=== PATIENT | female | born 1960 | race Caucasian/White ===

== ENCOUNTER 2020-12-07 08:44 | Day surgery (SDC) | payer BC ==
[~2020-12-07] VITALS: Ht 165.1 cm; Wt 98.7 kg
[2020-12-07] VITALS (11 sets, daily range): BP systolic 99–141; BP diastolic 56–89; PULSE 67–85; TEMP 98.4–98.9
[2020-12-07] MEDS ORDERED: COZAAR 50MG50 MG/TAB PO (09:45)
[2020-12-07] MEDS ORDERED: ALDACTONE50 MG PO (09:46)
[2020-12-07] MEDS ORDERED: KORLYM300 MG PO (09:47)
[2020-12-07] MEDS ORDERED: TAMOXIFEN CITRA20 MG PO (09:49)
[2020-12-07] MEDS ORDERED: EFFEXOR 75M75 MG/TAB PO (09:49)
[2020-12-07] MEDS ORDERED: CITRACAL + D CA1 TAB (09:50)
[2020-12-07] MEDS ORDERED: VITAMIN E 400 U4001 PO (09:56)
[2020-12-07] MEDS ORDERED: TYLENOL 500MG500 MG PO (10:00)
--- NOTE | 2020-12-07 14:50 | NUR ---
Patient up from [place] by bed. Alert and oriented x 3. Spouse at bedside. Denies pain at this time. Lap sites x 4 with edges well approximated. High to DD with clear yellow urine present. Post op VSS and post op Fluids infusing per orders. Denies further needs at this time.
--- NOTE | 2020-12-07 19:17 | NUR ---
Patient doing well throughout the day. Post op VSS. Denies pain or further needs at this time. Reported off to branch examiner.
--- NOTE | 2020-12-07 22:47 | NUR ---
Patient alert and oriented. Patient reports pain in minimal to abdomen incision site. Abdomen area has x4 incisions and open to air. No s/s of infection noted. VS stable. Call light in reach. Will continue to monitor.
[2020-12-08 03:47] VITALS: BP 101/64; PULSE 85; TEMP 98.2
--- NOTE | 2020-12-08 06:19 | NUR ---
Patient has no c/o pain throughout the night. Patient tolerating PO food intake well. Ice water and ice chips provided this morning per patient request. Call light in reach.
[2020-12-08 07:29] VITALS: BP 110/59; PULSE 77; TEMP 98.1
--- NOTE | 2020-12-08 07:50 | NUR ---
Patient sitting up in bed. Alert and oriented x 2. Assessment complete. Lap sites x 4 with edges well approximated. Peripad in place with minimal bloody drainage. INT to RAC. High to DD with clear yellow urine present. Patient denies pain at this time. SBA to reciner. Denies further needs at this time.
--- NOTE | 2020-12-08 09:45 | NUR ---
Dr. Varela in to see patient. High catheter discontinued per orders. Patient tolerated well, pericare provided. Denies further needs at this time.
--- NOTE | 2020-12-08 10:30 | NUR ---
Patient up to restroom. voided 20 ml of urine, bladder scanned for 20 ml.
--- NOTE | 2020-12-08 11:33 | NUR ---
Patient up to void. Voided approximately 150 ml of clear yellow urine. Bladder scan for 4 ml. Denies additional needs at this time.
[2020-12-08 11:50] VITALS: BP 112/69; PULSE 82; TEMP 98.3
--- NOTE | 2020-12-08 13:52 | NUR ---
Plans to return to [facility]. Patient rpeorts that her Larry is her care support. Patient shares that she is not in any pain and her PCP is Dr. Betancourt and sees Dr. Pierson. Patient idnicated that other specialist are Dr. Venancio Mann and Dr. Abdirizak Henderson. Patient shares that she obtians her medications at the local [facility] or [facility] in [facility]. Patient denies having any care concerns . Patient ididciated that her son may pick her up and take her home. Educated on supports available to her via case managment. NF.
== END 2020-12-08 12:10 | disposition home or self-care (01) ==
LOC: SDCO 08:44 → SURG 15:41 → SDCO 12-08 12:10
DX: D25.1 Intramural leiomyoma of uterus (principal); N83.202 Unspecified ovarian cyst, left side; N88.8 Other specified noninflammatory disorders of cervix uteri; N80.0 Endometriosis of uterus; D36.9 Benign neoplasm, unspecified site; N30.00 Acute cystitis without hematuria; I10 Essential (primary) hypertension; E24.9 Cushing's syndrome, unspecified; E55.9 Vitamin D deficiency, unspecified; K59.00 Constipation, unspecified; E66.9 Obesity, unspecified; F41.9 Anxiety disorder, unspecified; Z79.899 Other long term (current) drug therapy; Z85.828 Personal history of other malignant neoplasm of skin; Z20.822 Contact with and (suspected) exposure to COVID-19; Z90.49 Acquired absence of other specified parts of digestive tract; Z90.89 Acquired absence of other organs; Z68.39 Body mass index [BMI] 39.0-39.9, adult; Z83.3 Family history of diabetes mellitus
CPT/HCPCS: OP; A4314; J0690; J1885; J2405; J2704; J2710; J3010; J7120

== ENCOUNTER 2021-07-23 05:42 | Emergency (ER) | payer BC ==
[~2021-07-23] VITALS: Ht 165.1 cm; Wt 98.6 kg
[~2021-07-23 05:42] MED LIST: ALDACTONE50 MG PO; CITRACAL + D CA1 TAB; COZAAR 50MG50 MG/TAB PO; EFFEXOR 75M75 MG/TAB PO; KORLYM300 MG PO; TAMOXIFEN CITRA20 MG PO; TYLENOL 500MG500 MG PO; VITAMIN E 400 U4001 PO
[2021-07-23 05:44] VITALS: TEMP 98.3
[2021-07-23 06:06] LABS: BASO # 0.1 K/mm3 (0.0-0.2); BASO % 0.6 % (0.0-2.0); EOS # 0.1 K/mm3 (0.0-0.7); GRAN # 6.8 K/mm3 (1.4-6.5); GRAN % 66.6 % (42.2-75.2); HEMATOCRIT 43.1 % (37.0-47.0); HEMOGLOBIN 14.2 g/dl (12.5-16.0); LYMPH # 2.6 K/mm3 (1.2-3.4); LYMPH % 25.2 % (20.0-51.0); MEAN CELL VOLUME 94 fl (80.0-100.0); MEAN CORPUSCULAR HEMOGLOBIN 31 pg (27-31); MEAN CORPUSCULAR HGB CONC 33 g/dl (33.0-37.0); MEAN PLATELET VOLUME 9.3 fl (7.4-10.4); MONO # 0.6 K/mm3 (0.1-0.6); MONO % 6.2 % (1.7-9.3); PLATELET COUNT 224 K/mm3 (130-400); RED BLOOD COUNT 4.59 M/mm3 (4.10-5.30); REDCELL DISTRIBUTION WIDTH-CV 14.6 % (11.5-14.5)
[2021-07-23] MEDS ORDERED: ANTIVERT 25MG25 MG PO (06:18)
[2021-07-23 06:21] LABS: ALBUMIN 3.3 gm/dL (3.4-4.8); BILIRUBIN,TOTAL 0.5 mg/dL (0.2-1.2); CREATININE, serum 0.82 mg/dL (0.57-1.11); POTASSIUM 3.1 mmol/L (3.5-4.5); TOTAL PROTEIN 5.6 gm/dL (6.2-8.1)
[2021-07-23 16:27] VITALS: BP 142/87; PULSE 77
== END 2021-07-23 16:35 | disposition home or self-care (01) ==
LOC: COL.ER 05:42
PROVIDERS: Personal Emergency Response Attendant
DX: R42 Dizziness and giddiness (principal); R11.0 Nausea; R09.02 Hypoxemia; Z28.311 Partially vaccinated for COVID-19
CPT/HCPCS: J2060; J2550; J7030; J7050